=== PATIENT | male | born 1960 | race Caucasian/White ===

== ENCOUNTER → 2017-12-02 | Outpatient (CLI) | payer OTHER ==
[~2017-12-02] MED LIST: ALPRAZOLAM 0.0.25 M1 PO; APAP500 PO; ASPIR 8181 MG PO; ASPIRIN325 PO; ATORVASTATIN CA40 MG PO; CELEBREX 200 M200 M1 PO; CIPRO500 MG PO; CYCLOBENZAPRINE10 MG PO; FERREX 150150 MG PO; FLAGYL500 MG PO; HYDROCODONE-AP1 EAC6 PO; IBUPROFEN 200200 M1 PO; MERREM1 GM IV; NAPROSYN500 MG PO; NORCO 5-325 TA1 EACH PO; PRILOSEC 20 MG20 MG PO; TOPROL XL50 MG PO; TRAMADOL 50 MG50 MG PO; TUMS PO
== END ==
LOC: CAT 14:02
DX: K57.92 Diverticulitis of intestine, part unspecified, without perforation or abscess without bleeding (principal); E88.89 Other specified metabolic disorders; Z85.038 Personal history of other malignant neoplasm of large intestine

== ENCOUNTER → 2018-08-25 | Outpatient (CLI) | payer OTHER | LOC: RAD 12:21 | DX: M25.561 Pain in right knee (principal); Z88.0 Allergy status to penicillin; Z88.2 Allergy status to sulfonamides; W19.XXXA Unspecified fall, initial encounter; Y93.89 Activity, other specified; Y92.89 Other specified places as the place of occurrence of the external cause; Y99.8 Other external cause status ==